=== PATIENT | female | born 1960 | race Hispanic/Latino ===

== ENCOUNTER 2020-05-04 10:47 | Day surgery (SDC) | payer OTHER ==
[2020-04-27 10:27] LABS: Urine Appearance CLEAR; Urine Bilirubin NEGATIVE (NEG); Urine Blood NEGATIVE (NEG); Urine Color YELLOW; Urine Glucose NEGATIVE (NEG); Urine Protein NEGATIVE (NEG); Urine Specific Gravity <=1.005 (1.005-1.030); Urine Urobilinogen 0.2 mg/dL (0.2-1.0)
[2020-04-27 10:31] LABS: Protime INR 0.96
[2020-04-27 10:32] LABS: Absolute Lymphocytes (CBC) 2.4 K/uL (0.7-4.9); Hematocrit 30.9 % (36.0-45.0); Lymphocytes % 30.4 % (15.3-44.8); MPV 8.7 fL (7.6-11.3); RBC Red Blood Cell Count 3.08 M/uL (3.86-4.86)
[2020-04-27 10:35] LABS: Potassium 4.8 mmol/L (3.5-5.1)
[2020-04-27 10:47] LABS: Urine Microscopic Reflex ORDER UMIC
[2020-04-27 11:03] LABS: Urine Bacteria <20 /HPF (<20); Urine Culture Reflex Order NOT NEEDED; Urine RBC <5 /HPF (NONE SEEN)
--- OUTSIDE RECORDS SUMMARY | 2020-05-04 10:48 | XMS REPORT | Continuity of Care Document ---
:1960 Author Organization [facility] t Address [address] [place] [address] Dr. Ken [address] [place] [id number] Care Team Providers Name Role Phone Unavailable Unavailable Unavailable Problems This patient has no known problems. Allergies, Adverse Reactions, Alerts This patient has no known allergies or adverse reactions. Medications This patient has no known medications. Procedures This patient has no known procedures. Results This patient has no known results.
[2020-05-04] MEDS ORDERED: Ringers Lactate 1,000 ML IV ONE (11:02)
[2020-05-04] MEDS ORDERED: SCOPOLAMINE HYDROBROMIDE PATCH TD ONE (11:03)
[2020-05-04] MEDS ORDERED: FENTANYL CITR 100 MCG/2 ML ONE ×2 (11:06→13:24)
[2020-05-04] MEDS ORDERED: dexAMETHasone 10 MG/ML VIAL ONE (11:06)
[2020-05-04] MEDS ORDERED: MIDAZOLAM HCL 2 MG/2 ML INJ ONE (11:06)
[2020-05-04] MEDS ORDERED: propofoL 200 MG/20 ML VIAL IV ONE (11:06)
[2020-05-04] MEDS ORDERED: LIDOCAINE 2% MPF 5 ML VIAL ONE (11:07)
[2020-05-04] MEDS ORDERED: ONDANSETRON 4 MG/2 ML VIAL ONE (11:07)
[2020-05-04] MEDS ORDERED: ROCURONIUM 50 MG/5 ML VIAL IV ONE (11:07)
[2020-05-04] MEDS ORDERED: NA CHLORIDE 0.9% 1,000 ML ONE (11:19)
[2020-05-04] MEDS ORDERED: EPHEDRINE SULF 50 MG/ML VIAL ONE (12:35)
[2020-05-04] MEDS: BUPIVACAINE 0.25% PF 30 ML VIAL ONE ×2 (12:41→12:51)
[2020-05-04] MEDS ORDERED: GLYCOPYRROLATE 0.2 MG/ML SYR ONE ×2 (13:16→14:11)
[2020-05-04] MEDS ORDERED: NEOSTIGMINE 1 MG/ML -5 ML ONE (14:27)
[2020-05-04 15:42] VITALS: BP 131/58; TEMP 96.8; O2SAT 94
[2020-05-04] MEDS ORDERED: ACETAMINOPHEN 500 MG TAB ONE (16:04)
--- NOTE | 2020-05-06 05:27 | OP ---
Date of Procedure: 05/04/2020 Surgeon: Shwetha Boggs MD Group Sales Coordinator: Carolann Brunson. Preoperative Diagnoses: Pelvic pain and left adnexal mass. Procedures Performed: Diagnostic laparoscopy, pelvic washings, bilateral salpingo-oophorectomy, lysi s of sigmoid adhesions and omental adhesions which took at least 50% of the case. Estimated Blood Loss: Minimal cyst fluid. Specimens: Left ovarian cyst with left tube and right ovary with right tube were sent as specimens a long with cyst fluid and pelvic washings. The right ovarian cyst was drained after placing an EndoCa tch bag in a close fashion with no leakage at all as the bag was closed immediately after the fluid w as drained in the bag and the specimen had deflated. Estimated Blood Loss: Minimal. Urine Output: Good. Condition: Stable. Indications: Left ovarian mass was seen arising from the lateral aspect of the left ovary. The tube was stretched and present on top of it but did not appear to be a tubal mass and then right tube and ovary completely unremarkable. Peritoneum without any implants or irregularities and pelvic cul-de- sac unremarkable. The uterus was tiny. No abnormalities were seen. Description Of Procedure: After informed consent was verified, the patient was taken back to the OR, placed in a supine fashion on the operating table, general anesthesia was given, placed in a dorsal lithotomy position. The abdomen, vulva, vagina, and perineum were prepped and draped in a sterile fa shion. The patient was positioned in Fredy stirrups and arms were tucked by the side. Time-out was done. Positioning was checked and the patient was draped appropriately after a prep. Then, a specul um was placed to expose the cervix. A vaginal manipulator was placed into the uterus without any pro blems. A diagnostic manipulator and Huitron catheter were left attached to a drainage bag. This area was then draped. 1 cm infraumbilical incision was made with a scalpel using the open laparoscopy technique. Fascia wa s incised, peritoneum was incised as well. Fascia was tagged with 0 Vicryl sutures x2 and then S-ret ractors were placed in the peritoneum. Leonor was introduced and insufflated appropriately. No evid ence of any injury. Upper abdominal surface was completely unremarkable. The patient was placed in Trendelenburg. The omentum and the lateral gallegos were all examined. No evidence of any carcinomatos is. Thorough irrigation and suction were performed. 5 right ports were placed and in the left upper quadrant 5 ports were placed. The bladder appeared to be much more pulled up because of her 2 C-sec tions close to the suprapubic port, so this port was not placed. After all the ports were placed, pelvic washings were performed after these were drained and handed o ff for permanent pathology. Then, the bowel adhesions were taken down from the left lateral wall sha rply with sharp dissection using scissors, and after coming down to the level of the ovary and IP lig ament, these were not visible due to the adhesions, so these were taken down in a systematic sharp di ssection fashion with using bipolar energy for cauterization as needed. Once all the bowel adhesions were taken down systematically all the way down to the upper half of the pelvis, then the IP ligament was clearly exposed. The left broad ligament was opened up. Dissectio n was performed towards the left round ligament. Then, the mesosalpinx was opened up all the way to the level of the cornual end. Then, a medial window was made for a location superior to the ureter a nd immediately inferior to the IP ligament. Once this opening was made, the IP was taken down with t he help of the LigaSure and then the utero-ovarian ligament, mesosalpinx, and tube were all taken radha n and the specimen was detached and left in the posterior cul-de-sac. The remnant of the left tube w as also excised with the help of the LigaSure. Then, after identifying the ureter on the right pelvi c brim, the IP ligament was taken down, and after this was performed through the mesosalpinx removing the tube and ovary, then all this dissection was carried to the cornual end of the tube and here the tube was detached very close to the cornual end and both specimens were then placed in an EndoCatch bag. Once the specimen was positioned very well in the EndoCatch bag but the bag was not able to be closed without causing injury to the specimen, then here laparoscopic needle was placed under direct vision for suction of the specimen in the bag. Once this was punctured one time, there was excellent drainage and this was deflated. Then, the bag was immediately closed and the needle was pulled up. Then, the umbilical trocar was carefully visualized with the help of a 5 camera from the side and ma de sure that the entire bag was closed without any leakage. After visualizing all the pedicles and they were hemostatic, thorough irrigation and suction was perf ormed. Then, no problems with the adhesions either. Then, went ahead and removed the right and left lower quadrant ports, were completely hemostatic. However, watching the left upper quadrant port, t here was bleeding likely with the superficial epigastric or one of its tributaries as this incision a ppeared to be medial to the epigastrics, but there was still brisk arterial bleeding, not heavy, very small amount. So at this point, the suture delivering colon was inserted through the left upper daisy drant port. Then, 2-0 Monocryl suture was taken and passed from one side to the other using the lamonte damian device. Then, once the sutures were both pulled up from the top, the knot was placed bringing th e fascial edges together and hemostasis perpendicular to the vessels. Once this was done, there was no bleeding and intraabdominal pressure was dropped all the way down to 2 mmHg and this was observed and there was no bleeding here even though very low insufflation pressure. So, hemostasis was ensure d. The trocars were removed again. Suture was placed just for taking care of this. Then, all the g as was desufflated and Leonor was removed. Site of entry and exit were injected with 0.25% Marcaine. The fascia was closed with the help of 0 Vicryl in [id number] fashion, simple 0 Vicryl sutures in all incisions at the skin. The Huitron and VCare were removed. Instrument, needle, and sponge cou nts were done and were correct at the end of the case. The patient tolerated the procedure well and she will follow up with me in 1 week. NAVYA/CAMILLE Voice ID: [id number] Report ID: [id number]
== END 2020-05-04 16:39 | disposition home or self-care (01) ==
LOC: OR 10:47
PROVIDERS: ATTEND Obstetrics & Gynecology
PROC: 0UT24ZZ Resection of Bilateral Ovaries, Percutaneous Endoscopic Approach (ICD-10-PCS; 2020-05-04)
PROC: 0DNU4ZZ Release Omentum, Percutaneous Endoscopic Approach (ICD-10-PCS; 2020-05-04)
PROC: 0DNN4ZZ Release Sigmoid Colon, Percutaneous Endoscopic Approach (ICD-10-PCS; 2020-05-04)
PROC: 0UT74ZZ Resection of Bilateral Fallopian Tubes, Percutaneous Endoscopic Approach (ICD-10-PCS; principal; 2020-05-04 15:30)
DX: N83.202 Unspecified ovarian cyst, left side (principal); K21.9 Gastro-esophageal reflux disease without esophagitis; F41.8 Other specified anxiety disorders; N18.4 Chronic kidney disease, stage 4 (severe); I10 Essential (primary) hypertension; Z20.828 Contact with and (suspected) exposure to other viral communicable diseases
CPT/HCPCS: 49329; 44180; 58661; 85025; 80048; 36415; 86900; 88108; 86850; 85610; 86901; 88305 ×2; 85730; 86304; U0002; J2704; J2250; J3010 ×2; J1100; J2710; J7120; J7030; J2405; 81003; 81015